=== PATIENT | male | born 1970 | race Caucasian/White ===

== ENCOUNTER 2016-10-04 20:25 | Emergency (ER) | payer OTHER ==
[~2016-10-04] VITALS: Ht 167.6 cm; Wt 79.5 kg
[2016-10-04] MEDS ORDERED: PREDNISONE 5MG5 MG PO (22:15)
[2016-10-04] MEDS ORDERED: ALLOPURINOL300 M1 PO (22:15)
[2016-10-04 22:17] VITALS: BP 170/94
== END 2016-10-04 22:17 | disposition home or self-care (01) ==
LOC: ED 20:25
DX: E87.1 Hypo-osmolality and hyponatremia (principal); E87.79 Other fluid overload; M10.071 Idiopathic gout, right ankle and foot